=== PATIENT | female | born 1980 | race Two or more races ===

== ENCOUNTER 2017-09-27 19:35 | Emergency (ER) | payer OTHER ==
[~2017-09-27] VITALS: Ht 165.1 cm; Wt 112.5 kg
[2017-09-27] MEDS ORDERED: MORPHINE SULFATE 4 MG/ML SYR/VIAL IV ONE ×2 (20:30→22:45)
[2017-09-27] MEDS ORDERED: ONDANSETRON HCL 4 MG/2 ML VIAL IV ONE ×2 (20:30→22:45)
[2017-09-27] MEDS ORDERED: MORPHINE SULFATE 4 MG/ML SYR/VIAL ONE (22:49)
[2017-09-27] MEDS ORDERED: ONDANSETRON HCL 4 MG/2 ML VIAL ONE (22:50)
[2017-09-27] MEDS ORDERED: ETOMIDATE (2MG/ML) 20ML VIAL IV ONE (23:15)
[2017-09-28 00:20] VITALS: BP 126/82
[2017-09-28] MEDS ORDERED: traMADol HCL 50 MG TAB PO ONE (00:45)
== END 2017-09-28 01:38 | disposition home or self-care (01) ==
LOC: ER 19:41
DX: S42.421A Displaced comminuted supracondylar fracture without intercondylar fracture of right humerus, initial encounter for closed fracture (principal); Z88.6 Allergy status to analgesic agent; Z88.8 Allergy status to other drugs, medicaments and biological substances; X50.0XXA Overexertion from strenuous movement or load, initial encounter; Y93.89 Activity, other specified; Y99.8 Other external cause status; Y92.89 Other specified places as the place of occurrence of the external cause
CPT/HCPCS: 24505; 36415; 73060; 73200; 84702; 96374; 96375; 96376; 99291; J2270; J2405; 99152